=== PATIENT | female | born 1955 | race Caucasian/White ===

== ENCOUNTER 2025-01-01 18:32 | Emergency (ER) | payer MEDICARE, MEDICAID ==
[~2025-01-01] VITALS: Ht 167.6 cm; Wt 95.3 kg
[2025-01-01 18:40] VITALS: TEMP 97.9
[2025-01-01] MEDS ORDERED: KETOROLAC TROMETHAMINE INJ 30 MG/ML VIAL ONE (19:26)
[2025-01-01] MEDS: KETOROLAC TROMETHAMINE INJ 30 MG/ML VIAL IM ONE (19:31)
[2025-01-01] MEDS ORDERED: PROP15DR EACHEYE (20:37)
[2025-01-01 21:31] VITALS: BP 127/74; O2SAT 97
== END 2025-01-01 23:31 ==
LOC: ER 18:43
DX: S09.8XXA Other specified injuries of head, initial encounter (principal); E78.5 Hyperlipidemia, unspecified; F31.9 Bipolar disorder, unspecified; J45.909 Unspecified asthma, uncomplicated; M47.812 Spondylosis without myelopathy or radiculopathy, cervical region; Z88.2 Allergy status to sulfonamides; Z88.5 Allergy status to narcotic agent; M25.552 Pain in left hip; M25.551 Pain in right hip; M54.50 Low back pain, unspecified; M54.2 Cervicalgia; W06.XXXA Fall from bed, initial encounter; Y93.89 Activity, other specified; Y92.89 Other specified places as the place of occurrence of the external cause; Y99.8 Other external cause status
CPT/HCPCS: 99285; 72125; 96372; 73521; 70450; 72131; J1885

== ENCOUNTER 2025-02-24 23:20 | Emergency (ER) | payer MEDICARE, OTHER ==
[~2025-02-24] VITALS: Ht 172.7 cm; Wt 95.3 kg
[~2025-02-24 23:20] MED LIST: PROP15DR EACHEYE
[2025-02-24] MEDS ORDERED: ATOR10TA PO (23:50)
[2025-02-24] MEDS ORDERED: METH2.5T PO (23:50)
[2025-02-24] MEDS ORDERED: OLAN5TAB3 PO (23:50)
[2025-02-24] MEDS ORDERED: LAMO100T17 PO (23:50)
[2025-02-24] MEDS ORDERED: DOCU100T2 PO (23:50)
[2025-02-24] MEDS ORDERED: CYCL5TAB PO (23:50)
[2025-02-24] MEDS ORDERED: ACET325T53 PO (23:50)
[2025-02-24] MEDS ORDERED: GABA600T12 PO (23:50)
[2025-02-24] MEDS ORDERED: ALBU2.5V38 NEB (23:50)
[2025-02-25 00:01] LABS: PLATELET COUNT (AUTO) 290 K/uL (150-450); RED BLOOD CELL COUNT(AUTO) 3.82 MIL/uL (4.0-5.2); RED CELL DISTRIBUTION WIDTH 14.4 % (11.5-15.0); WHITE BLOOD COUNT (AUTO) 5.1 K/uL (4.3-11.0)
[2025-02-25 00:19] LABS: CALCIUM, SERUM 9.0 mg/dL (8.5-10.1); CREATININE 0.9 mg/dL (0.6-1.3); SODIUM SERUM 140.0 mmol/L (136-145); UREA NITROGEN, BLOOD 11.0 mg/dL (7-18)
[2025-02-25 00:33] LABS: ASPARTATE AMINOTRANSFERASE 16.0 U/L (15-37); NT-PRO BNP 153.0 pg/mL (0-125); TOTAL PROTEIN, SERUM 7.0 g/dL (6.4-8.2)
[2025-02-25] MEDS ORDERED: FURO-145 PO (02:12)
[2025-02-25] MEDS ORDERED: FUROSEMIDE 20 MG TABLET PO ONE (02:30)
[2025-02-25 02:48] VITALS: BP 101/52; TEMP 97.7; O2SAT 96
== END 2025-02-25 02:49 ==
LOC: ER 23:28
DX: R60.0 Localized edema (principal); E78.5 Hyperlipidemia, unspecified; F31.9 Bipolar disorder, unspecified; I50.9 Heart failure, unspecified; J45.909 Unspecified asthma, uncomplicated; N17.9 Acute kidney failure, unspecified; Z79.899 Other long term (current) drug therapy; Z86.718 Personal history of other venous thrombosis and embolism; Z88.2 Allergy status to sulfonamides; Z88.5 Allergy status to narcotic agent
CPT/HCPCS: 36415; 80048-TC; 80076-TC; 83880; 85025-TC; 93970-TC